=== PATIENT | male | born 1970 | race Caucasian/White ===

== ENCOUNTER 2024-12-07 04:32 | Emergency (ER) | payer OTHER ==
[~2024-12-07] VITALS: Ht 177.8 cm; Wt 104.3 kg
[2024-12-07] MEDS ORDERED: ONDANSETRON 4 MG/2 ML VIAL ONE (05:00)
[2024-12-07] MEDS ORDERED: KETOROLAC TROMETHAMINE 30 MG INJ ONE (05:01)
[2024-12-07] MEDS ORDERED: HYDROMORPHONE 1 MG/1 ML DISP.SYRIN ONE ×2 (05:01→06:03)
[2024-12-07 05:06] LABS: BASOPHILS # (AUTO) 0.1 K/UL (0.0-0.2); BASOPHILS % (AUTO) 0.7 % (0.0-2.0); EOSINOPHILS % (AUTO) 0.4 % (0.0-7.0); HEMATOCRIT 41.5 % (36.7-47.1); LYMPHOCYTES # (AUTO) 1.3 K/uL (0.8-4.8); LYMPHOCYTES % (AUTO) 11.6 % (20.5-51.5); MEAN CORPUSCULAR HEMOGLOBIN 29.7 uug (23.8-33.4); MEAN CORPUSCULAR HGB CONC 34 g/dL (32.5-36.3); MEAN CORPUSCULAR VOLUME 88.1 fL (73.0-96.2); MONOCYTES # (AUTO) 0.3 K/uL (0.1-1.30); MONOCYTES % (AUTO) 2.7 % (0.0-11.0); NEUTROPHILS # (AUTO) 9.7 K/uL (1.8-8.9); NEUTROPHILS % (AUTO) 84.6 % (38.5-71.5); PLATELET COUNT (AUTO) 217 K/uL (152-348); RED BLOOD CELL COUNT(AUTO) 4.71 MIL/uL (4.06-5.63); WHITE BLOOD COUNT (AUTO) 11.5 K/uL (3.6-10.2)
[2024-12-07] MEDS: ONDANSETRON 4 MG/2 ML VIAL IV ONE (05:07)
[2024-12-07] MEDS: HYDROMORPHONE 1 MG/1 ML DISP.SYRIN IV ONE ×2 (05:07→06:07)
[2024-12-07] MEDS: IV NORMAL SALINE 1000 ML BAG IV ONE (05:08)
[2024-12-07] MEDS: KETOROLAC TROMETHAMINE 30 MG INJ IVP ONE (05:08)
[2024-12-07 05:13] LABS: DIFFERENTIAL COMMENT 1
[2024-12-07 05:20] LABS: ALBUMIN 4.1 g/dL (3.4-5.0); BILIRUBIN,DIRECT 0.1 mg/dL (0.0-0.2); BILIRUBIN,TOTAL 0.4 mg/dL (0.2-1.0); CALCIUM 9.4 mg/dL (8.5-10.1); CREATININE 1.1 mg/dL (0.6-1.3); POTASSIUM 4.2 mmol/L (3.5-5.1); TOTAL PROTEIN, SERUM 7.6 g/dL (6.4-8.2)
[2024-12-07] MEDS ORDERED: ONDA4TAB11 PO (06:30)
[2024-12-07] MEDS ORDERED: HYDR-3980 PO (06:30)
[2024-12-07] MEDS ORDERED: IBUP-1490 PO (06:30)
[2024-12-07 07:00] VITALS: BP 143/82; TEMP 98; O2SAT 97
== END 2024-12-07 06:52 | disposition home or self-care (01) ==
LOC: ER 04:48
DX: R10.11 Right upper quadrant pain (principal); R11.2 Nausea with vomiting, unspecified; Z87.19 Personal history of other diseases of the digestive system
CPT/HCPCS: 99285; 96374; 76705; 96361; 96375; 80076; 80048; 83690; 85025; 36415; 96376; J1885; J1171 ×2; J2405; J7040; A4606; A4663